=== PATIENT | male | born 2000 | race Caucasian/White ===

== ENCOUNTER 2020-09-20 01:18 | Inpatient (IN) | payer MEDICAID, OTHER ==
--- NOTE | 2020-09-20 01:59 | ED ---
Psych HPI - General Chief Complaint: Psychiatric Symptoms Stated Complaint: petition Time Seen by Provider: 09/20/20 01:33 Source: patient, police Mode of arrival: ambulatory - History of Present Illness Initial Comments: 20-year-old male with history of depression presenting to emergency Department for psychiatric evaluation. Patient states he has been dealing with more stress as of lately. He has been having some suicidal thoughts but not something that he would act upon. No actual plans. Denies homicidal thoughts or ideations. States that he was recently into an argument with his sister and he mentioned to her that this is "a life is not worth living". The sister contacted the Police Department amputation and to be evaluated by psychiatric services. Patient is denying any other complaints at this time. - Related Data Allergies Allergy/AdvReac Type Severity Reaction Status Date / Time No Known Allergies Allergy Verified 09/20/20 01:24 Review of Systems ROS Statement: Those systems with pertinent positive or pertinent negative responses have been documented in the HPI. ROS Other: All systems not noted in ROS Statement are negative. Past Medical History Past Medical History: No Reported History History of Any Multi-Drug Resistant Organisms: None Reported Past Surgical History: Ear Surgery Past Psychological History: Anxiety, Depression Smoking Status: Current every day smoker Past Alcohol Use History: None Reported Past Drug Use History: Marijuana General Exam Limitations: no limitations General appearance: alert, in no apparent distress Head exam: Present: atraumatic, normocephalic, normal inspection Eye exam: Present: normal appearance, PERRL, EOMI Pupils: Present: normal accommodation ENT exam: Present: normal exam, normal oropharynx, mucous membranes moist, TM's normal bilaterally, normal external ear exam Neck exam: Present: normal inspection, full ROM. Absent: tenderness Respiratory exam: Present: normal lung sounds bilaterally. Absent: respiratory distress, wheezes, rales Cardiovascular Exam: Present: regular rate, normal rhythm, normal heart sounds GI/Abdominal exam: Present: soft. Absent: distended, tenderness, guarding, rebound Extremities exam: Present: normal inspection, full ROM, normal capillary refill. Absent: tenderness, pedal edema, joint swelling, calf tenderness Back exam: Present: normal inspection, full ROM. Absent: tenderness, CVA tenderness (R), CVA tenderness (L) Neurological exam: Present: alert, oriented X3, normal gait Psychiatric exam: Present: normal affect, normal mood Skin exam: Present: warm, dry, intact, normal color Course Vital Signs 09/20/20 01:24 Temperature 97.9 F Pulse Rate 89 Respiratory 18 Rate Blood Pressure 157/99 O2 Sat by Pulse 100 Oximetry Medical Decision Making - Medical Decision Making 20-year-old male with history of depression presenting to the emergency department for psychiatric evaluation. He did have suicidal thoughts but no plans. Patient was petitioned by his sister and brought to the ED by the police department. EPS devalue the patient. At this time, patient care signed off to Disposition Referrals: Reynaldo Norris MD [Primary Care Provider] - 1-2 days
[2020-09-20 05:22] LABS: Amphetamine Screen,Urine Detected (NotDetected); Barbiturate Screen,Urine Not Detected (NotDetected); Benzodiazepines Screen,Urine Not Detected (NotDetected); Cocaine Screen,Urine Not Detected (NotDetected); Methadone Screen, Urine Not Detected (NotDetected); Opiate Screen,Urine Not Detected (NotDetected); Oxycodone Screen, Urine Not Detected (NotDetected); Phencyclidine Screen,Urine Not Detected (NotDetected); Tricyclic Antidepressant,Urine Not Detected (NotDetected); Urn Cannabinoid Scrn Detected (NotDetected)
[2020-09-20] MEDS ORDERED: MAG HYDROX/AL HYDROX/SIMETH 30 ML CUP PO PRN (09:28)
[2020-09-20] MEDS ORDERED: LORazepam 1 MG TAB PO PRN (09:28)
[2020-09-20] MEDS ORDERED: MAGNESIUM HYDROXIDE 2,400 MG/10 ML CUP PO PRN (09:28)
[2020-09-20] MEDS ORDERED: LORazepam 2 MG/ML INJ IM PRN (09:32)
[2020-09-20] MEDS ORDERED: HALOPERIDOL LACTATE 5 MG/ML 1 ML VIAL IM PRN (09:34)
[2020-09-20] MEDS: NICOTINE 14MG/24HR PATCH TRANSDERM SCH (10:36)
[2020-09-20 13:09] LABS: Appearance,Urine Clear (Clear); Bilirubin,Urine Negative (Negative); Blood,Urine Negative (Negative); Color,Urine Yellow; Glucose,Urine (UA) Negative (Negative); Ketones,Urine Negative (Negative); Leukocyte Esterase,Urine Negative (Negative); Nitrite,Urine Negative (Negative); PH, Urine 6.5 (5.0-8.0); Protein,Urine Trace (Negative); Specific Gravity,Urine 1.028 (1.001-1.035)
[2020-09-20] MEDS ORDERED: hydrOXYzine pamoate 25 MG CAP PO PRN (14:17)
[2020-09-20] MEDS: ACETAMINOPHEN TAB 325 MG TAB PO PRN (14:21)
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
--- NOTE | 2020-09-20 17:28 | P.CONS ---
History of Present Illness - Reason for Consult Consult date: 09/20/20 Medical management Requesting physician: Maninder Schmidt - Chief Complaint Depressed - History of Present Illness Consultation: This is a 20-year-old patient of Dr. Reynaldo Norris. Patient is brought in with a bolus of the patient's sister called 911 and patient had locked himself to get arch threaten to hurt himself. He had made suicidal statements and had made of nose. Patient been having increasing depression over the last few months. Has not followed up with the psychiatrist. He feels hopeless helpless and has had intermittent suicidal thoughts. Patient does work in a [employer]. Does smoke cigarettes. Some marijuana. Denies any the use of drugs. As with his parents. Sleep pattern is a bit disturbed. No change in GI habits. No Review of systems: GEN.: Tired EYES: None HEENT: None NECK: None RESPIRATORY: None CARDIOVASCULAR: None GASTROINTESTINAL: None GENITOURINARY: None MUSCULOSKELETAL: None LYMPHATICS: None HEMATOLOGICAL: None PSYCHIATRY: Depressed NEUROLOGICAL: None Past medical history to include: Depression and anxiety Social history: Smokes about a pack a day. Marijuana, no alcohol. Lives with his parents. Works at the [employer] Family history: Reviewed, noncontributory to presentation Physical examination: VITAL SIGNS: 97.8, 67, 20, 146 bun 90, 100% room air GENERAL: BMI 29, sitting of age the bed, mood appears to. EYES: Pupils equal. Conjunctiva normal. HEENT: External appearance of nose and ears normal, oral cavity grossly normal. NECK: JVD not raised; masses not palpable. HEART: First and second heart sounds are normal; no edema. LUNGS: Respiratory rate normal; clear to auscultation. ABDOMEN: Soft, nontender, liver spleen not palpable, no masses palpable. PSYCH: Alert and oriented x3; mood and affect lowl. NEUROLOGICAL: Cranial nerves grossly intact; no facial asymmetry, power and sensation grossly intact. 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 Patient be given a nicotine patch. Advised again use of recreational drugs including smoking and marijuana. Follow-up with his family doctor per discharge Thank you Dr. Pascual Past Medical History Past Medical History: No Reported History History of Any Multi-Drug Resistant Organisms: None Reported Past Surgical History: Ear Surgery Past Psychological History: Anxiety, Depression Smoking Status: Current every day smoker Past Alcohol Use History: None Reported Past Drug Use History: Marijuana Medications and Allergies Home Medications Medication Instructions Recorded Confirmed Type Acetaminophen [Tylenol] 500 mg PO Q4-6H PRN 09/20/20 09/20/20 History Allergies Allergy/AdvReac Type Severity Reaction Status Date / Time No Known Allergies Allergy Verified 09/20/20 10:09 Physical Exam Vitals: Vital Signs Temp Pulse Pulse Resp BP BP Pulse Ox 09/20/20 10:11 97.8 F 67 20 146/90 09/20/20 01:24 97.9 F 89 18 157/99 100 Intake and Output 09/19/20 09/20/20 09/20/20 22:59 06:59 14:59 Other: Weight 69.853 kg 69.853 kg Results Labs: Abnormal Lab Results - Last 24 Hours (Table) 09/20/20 Range/Units 04:39 Ur Amphetamines Screen Detected H (NotDetected) U Methamphetamines Scrn Detected H (NotDetected) U Marijuana (THC) Screen Detected H (NotDetected)
[2020-09-20] MEDS: DULoxetine HCL 20 MG CAPSULE.DR PO SCH (21:05)
[2020-09-21 06:25] VITALS: RESP 18
[2020-09-21] MEDS: ACETAMINOPHEN TAB 325 MG TAB PO PRN ×2 (06:52→13:56)
[2020-09-21 08:11] LABS: ALT 22 U/L (4-49); AST 30 U/L (17-59); African American GFR (CKD) >90 (>60 ml/min/1.73 sqM); Albumin 4.7 g/dL (3.5-5.0); Alkaline Phosphatase 63 U/L (38-126); Anion Gap 10 mmol/L; Blood Urea Nitrogen 10 mg/dL (9-20); Calcium 9.5 mg/dL (8.4-10.2); Carbon Dioxide 24 mmol/L (22-30); Chloride 108 mmol/L (98-107); Cholesterol 144 mg/dL (<200); Glucose 89 mg/dL (74-99); HDL Cholesterol 41 mg/dL (40-60); LDL Cholesterol,Calculated 77 mg/dL (0-99); Non-African American GFR(CKD) >90 (>60 ml/min/1.73 sqM); Potassium 4.4 mmol/L (3.5-5.1); Sodium 142 mmol/L (137-145); Total Bilirubin 1.1 mg/dL (0.2-1.3); Triglycerides 132 mg/dL (<150)
[2020-09-21] MEDS: DULoxetine HCL 20 MG CAPSULE.DR PO SCH (08:47)
[2020-09-21] MEDS: NICOTINE 14MG/24HR PATCH TRANSDERM SCH (08:47)
--- NOTE | 2020-09-21 12:09 | P.PN ---
Progress Note - Text Progress Note Date: 09/21/20 Interval history: Patient was seen wandering the hallways and was directable and agreeable to speak with instructional writer. Patient specifically feels much better today. He reports that he is happy to back on his medications and that they appear to be beneficial. He states the Vistaril has been helping control his anxiety and has been beneficial for him to sleep. He is tolerating his medications well and is not endorsing any significant side effects. He is not reporting any suicidal or homicidal ideation, intention, and/or plan. He denies any auditory or visual hallucinations. He states that he has been socializing with peers and going to groups. Mental status exam: General Appearance: Patient appears to be stated age is alert, directable, and attempts to cooperate. Lean and tall build. Good hygiene and grooming. Behavior: Patient is seated without any agitated behavior. Psychomotor activity appears normal. Speech: Patient's speech is fluent and nonpressured. Mood/Affect: Patient reports their mood is improving mildly, affect is congruent and euthymic. Suicidality/Homicidality: Patient is currently denying any suicidal or homicidal ideation, intention, and/or plan. Perceptions: Patient denies any visual hallucinations and denies any auditory hallucinations Though content/process: There is no evidence of any delusional thought content and thought process is linear and goal-directed. Memory and concentration: AOX3, grossly intact for the purposes of this session. Can spell "WORLD" backwards Judgment and insight: Fair Assessment/Plan: Continue with current diagnosis. Patient continues to meet criteria for inpatient psychiatric admission for symptom stabilization and safety. Patient will be maintained on current psychotropic medication regimen with the exception of increasing his Cymbalta to 30 mg by mouth twice a day. Monitor for medication compliance and for any psychotropic medication side effects. Will continue to monitor ongoing response to treatment. Encouraged participation in milieu.
[2020-09-21] MEDS: DULoxetine HCL 30 MG CAPSULE.DR PO SCH (20:51)
[2020-09-22 06:31] VITALS: BP 140/77; PULSE 65; TEMP 97.8
[2020-09-22] MEDS: NICOTINE 14MG/24HR PATCH TRANSDERM SCH ×2 (08:26→09:36)
[2020-09-22] MEDS: DULoxetine HCL 30 MG CAPSULE.DR PO SCH (08:26)
[2020-09-22] MEDS: ACETAMINOPHEN TAB 325 MG TAB PO PRN (10:31)
--- NOTE | 2020-09-22 13:00 | P.DS ---
Providers Date of admission: 09/20/20 09:25 Attending physician: Maninder Schmidt MD Consults: 09/20/20 09:28 Consult Physician Routine Consulting Provider: Blayne Robison Consult Reason/Comments: history and physical Do you want consulting provider notified?: Yes Primary care physician: Reynaldo Norris - Discharge Diagnosis(es) (1) Major depressive disorder, recurrent episode Current Visit: Yes Status: Acute Priority: Medium (2) Marijuana use Current Visit: Yes Status: Chronic Priority: Medium (3) Tobacco use Current Visit: Yes Status: Chronic Priority: Medium Hospital Course: HISTORY: He is a 20-year-old single male brought to the ED by police after his sister called 911. He apparently locked himself in the garage and threatened to hang himself. He described increasing feelings depression for approximate 6 months prior to admissions. The depression responded to a combination of duloxetine and Klonopin but did not follow through with outpatient treatment. He described increasing depression since he stopped taking the antidepressant. His depressive symptoms include low self-esteem, anhedonia, increased sleep, feelings of hopelessness, helplessness and thoughts of . He denied that he had threatened suicide and specifically denied that he had threatened to hang himself.. He alleged that he was arguing with his family and locked himself in the garage in order to "have some privacy." He is a history of ADHD diagnosis child and treated with psychostimulants. He had no psychiatric hospitalizations. He reported taking Adderall that he received from a friend and has been smoking marijuana. He denied that he has been using methamphetamine. His UDS was positive for amphetamine, methamphetamine and marijuana. HOSPITAL COURSE: We admitted him to the psychiatric unit under the care of this global technical writer. Provided a Biopsychosocial assessment. The development consultant director software development completed initial physical exam and medical history and did not diagnose major medical problem. We restarted Cymbalta 3 mg daily and treated his anxiety with Vistaril 25 mg when necessary. He reported a marked improvement in his depression and reduction of anxiety after restarting the antidepressant. He minimizes severity of substance use problem and alleged that he only took Adderall "once." He posed no management problem and has no episodes of behavioral dyscontrol. The social group worker spoke with his mother who expressed no concerns about his safety. He specifically denied suicidal ideation stating that she would never consider suicide because he affect would have on his family and his child. He requested discharge so that he can return to work. MENTAL STATUS ON DISCHARGE: He presented as a young casually groomed male who was pleasant on approach. He made eye contact and attended to the interview. He had no distinction features are prominent physical abnormalities. He had a blunted facial expression. He was alert and oriented to person, place and time. He showed no abnormality of psychomotor activity. His speech was spontaneous with slight decrease and rhythm but normal volume and amount. His affect was blunted but stable and appropriate. He denied suicidal ideation, wishes or homicidal ideation. He denied feeling hopeless, helpless or worthless. He ruminated about the circumstances that led to this hospitalization but denied ideas reference, paranoid ideation and delusions. His thinking was abstract and associations were coherent, logical and goal directed. He denied hallucinations didn't appear to responding to internal stimuli. DISPOSITION: He returned to his parent's home. Continue Cymbalta 30 mg daily. He has a intake appointment scheduled at [facility] at 09/24/2020 at 11:30 a.m. Patient Condition at Discharge: Stable Plan - Discharge Summary Discharge Rx Participant: No New Discharge Prescriptions: New DULoxetine HCL [Cymbalta] 30 mg PO BID #30 capsule. Nicotine 14Mg/24Hr Patch [Habitrol] 1 patch TRANSDERM DAILY patch Continue Acetaminophen [Tylenol] 500 mg PO Q4-6H PRN PRN Reason: Pain Discharge Medication List Acetaminophen [Tylenol] 500 mg PO Q4-6H PRN 09/20/20 [History] DULoxetine HCL [Cymbalta] 30 mg PO BID #30 capsule. 09/22/20 [Rx] Nicotine 14Mg/24Hr Patch [Habitrol] 1 patch TRANSDERM DAILY patch 09/22/20 [Rx] Follow up Appointment(s)/Referral(s): [facility] [Other] - 09/24/20 11:30 am (Christina You will recieve a text from the office, click link for [facility]ox[facility] instructions. ) Reynaldo Norris MD [Primary Care Provider] - 1-2 days Activity/Diet/Wound Care/Special Instructions: Activity and diet as tolerated. Avoid the use of street drugs and alcohol. Take all medications as prescribed. When you are in need of refills on your medications please contact your medical provider and/or outpatient psychiatrist to have this done. Please go to scheduled outpatient appointment for aftercare treatment. If symptoms return or become worse, call the crisis line at and/or go to the nearest emergency room for evaluation. Discharge Disposition: HOME SELF-CARE
== END 2020-09-22 14:52 | disposition home or self-care (01) | DRG 885 ==
LOC: EC 01:18 → 3MHU 09:25
PROVIDERS: ADMIT Psychiatry & Neurology Psychiatry; ATTEND Psychiatry & Neurology Psychiatry
DX: F33.2 Major depressive disorder, recurrent severe without psychotic features (principal); R45.851 Suicidal ideations; F12.90 Cannabis use, unspecified, uncomplicated; F15.90 Other stimulant use, unspecified, uncomplicated; F17.210 Nicotine dependence, cigarettes, uncomplicated; F41.9 Anxiety disorder, unspecified; F51.05 Insomnia due to other mental disorder; Z20.828 Contact with and (suspected) exposure to other viral communicable diseases; Z79.899 Other long term (current) drug therapy
CPT/HCPCS: 80053; 80061; 80306; 81003; 82075; 87635; 99285

== ENCOUNTER 2022-03-12 14:19 | Emergency (ER) | payer OTHER, BC ==
[2022-03-12 14:29] VITALS: RESP 18; TEMP 98
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
[2022-03-12 14:54] LABS: Basophils % (A) 0 %; Eosinophils # (A) 0.3 k/uL (0-0.7); Eosinophils % (A) 3 %; HCT 43.8 % (39.0-53.0); HGB 14.8 gm/dL (13.0-17.5); Lymphocytes # (A) 3.1 k/uL (1.0-4.8); Lymphocytes % (A) 32 %; MCH 30.9 pg (25.0-35.0); MCHC 33.8 g/dL (31.0-37.0); MCV 91.4 fL (80.0-100.0); Mean Platelet Volume 7.8; Monocytes # (A) 0.5 k/uL (0-1.0); Monocytes % (A) 5 %; Neutrophils # (A) 5.6 k/uL (1.3-7.7); Neutrophils % (A) 58 %; Platelet Count 293 k/uL (150-450); RDW 12.9 % (11.5-15.5); WBC 9.7 k/uL (3.8-10.6)
[2022-03-12 15:05] LABS: Partial Thromboplastin Time 24.3 sec (22.0-30.0); Prothrombin Time 10.9 sec (9.0-12.0)
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
[2022-03-12 15:21] LABS: ALT 25 U/L (4-49); AST 26 U/L (17-59); African American GFR (CKD) >90 (>60 ml/min/1.73 sqM); Albumin 4.2 g/dL (3.5-5.0); Alcohol <10 mg/dL; Alkaline Phosphatase 54 U/L (38-126); Anion Gap 7 mmol/L; Blood Urea Nitrogen 10 mg/dL (9-20); Calcium 8.8 mg/dL (8.4-10.2); Carbon Dioxide 23 mmol/L (22-30); Chloride 107 mmol/L (98-107); Glucose 116 mg/dL (74-99); Non-African American GFR(CKD) >90 (>60 ml/min/1.73 sqM); Potassium 3.3 mmol/L (3.5-5.1); Sodium 137 mmol/L (137-145); Total Bilirubin 0.5 mg/dL (0.2-1.3); Total Protein 7.2 g/dL (6.3-8.2)
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
[2022-03-12 16:49] VITALS: BP 149/75; PULSE 80
[2022-03-12 16:52] LABS: Appearance,Urine Clear (Clear); Bilirubin,Urine Negative (Negative); Blood,Urine Negative (Negative); Color,Urine Yellow; Glucose,Urine (UA) Negative (Negative); Ketones,Urine Negative (Negative); Leukocyte Esterase,Urine Negative (Negative); Nitrite,Urine Negative (Negative); Protein,Urine Negative (Negative); Specific Gravity,Urine 1.024 (1.001-1.035); Urobilinogen,Urine <2.0 mg/dL (<2.0)
[2022-03-12 17:13] LABS: Amphetamine Screen,Urine Not Detected (NotDetected); Barbiturate Screen,Urine Not Detected (NotDetected); Benzodiazepines Screen,Urine Not Detected (NotDetected); Cocaine Screen,Urine Not Detected (NotDetected); Methadone Screen, Urine Not Detected (NotDetected); Opiate Screen,Urine Not Detected (NotDetected); Oxycodone Screen, Urine Not Detected (NotDetected); Phencyclidine Screen,Urine Not Detected (NotDetected); Tricyclic Antidepressant,Urine Not Detected (NotDetected); Urn Cannabinoid Scrn Detected (NotDetected)
== END 2022-03-12 16:57 | disposition home or self-care (01) ==
LOC: EC 14:19
DX: S20.219A Contusion of unspecified front wall of thorax, initial encounter (principal); S00.83XA Contusion of other part of head, initial encounter; F17.209 Nicotine dependence, unspecified, with unspecified nicotine-induced disorders; W22.09XA Striking against other stationary object, initial encounter
CPT/HCPCS: 36415; 93005; 86900; 86901; 80053; 84484; 85025; 85610; 85730; 86850; 81003; 80306; 80320; 72170; 71045; 72125; 70450; 71260; 74177; 99284; Q9967